=== PATIENT | male | born 1965 | race African-American/Black ===

== ENCOUNTER 2018-03-07 13:42 | Emergency (ER) | payer SELFPAY ==
[~2018-03-07] VITALS: Ht 172.7 cm; Wt 79.4 kg
[2018-03-07] MEDS ORDERED: NKM (13:50)
--- NOTE | 2018-03-07 14:05 | Emergency Room Report ---
History of Present Illness General Chief Complaint: Male Urogenital Problems Source: Patient Present Illness HPI 52-year-old male patient presents ER complaining of blood in urine this morning. Reports that he went on the internet and was instructed to go to the ER for symptoms of blood in urine. Reports that he has urinated since that time without any blood. Denies pain with urination, penile discharge, penile pain, testicular swelling or pain. Denies history of prostate problems. Denies history of kidney stones. Denies fever, chest pain, shortness of breath , abdominal pain. Reports no acute symptoms at this time. reports wears condoms during sex. Denies penile rash. reports was "goofing around" with his buddies yesterday and was hit on his back and stomach during that time. Allergies: Coded Allergies: No Known Allergies (Unverified , 03/07/18) Patient History Past Medical History: see triage record Reviewed Nursing Documentation: PMH: Agreed; PSxH: Agreed Nursing Documentation-PMH Past Medical History: No Stated History Review of Systems All Other Systems: negative except mentioned in HPI Physical Exam Vital Signs Date Time Temp Pulse Resp B/P (MAP) Pulse Ox O2 Delivery O2 Flow Rate FiO2 03/07/18 13:45 97.9 99 16 151/108 96 Room Air 97.9 Sp02 EP Interpretation: reviewed, normal General Appearance: well appearing, no apparent distress, alert, GCS 15, non- toxic Head: normocephalic, atraumatic Neck: full range of motion Respiratory: lungs clear, normal breath sounds, no rhonchi, no respiratory distress, no accessory muscle use, no wheezing, speaking full sentences Cardiovascular #1: regular rate, rhythm, no edema Gastrointestinal: non tender, soft, no mass, non-distended, no guarding, no rebound Genitourinary: no CVA tenderness Musculoskeletal: back normal, digits/nails normal, gait/station normal, normal range of motion, non-tender Neurologic: alert, oriented x3, responsive, motor strength/tone normal, sensory intact Skin: no rash Medical Decision Making PA Attestation Dr. Rocha is my supervising Physician whom patient management has been discussed with. Diagnostic Impression: Primary Impression: Hematuria ER Course Pt presents to ED c/o urinary symptoms. DDX considered but are not limited to cystitis, pyelonephritis, STI, UTI, nephrolithiasis. Low suspicion for kidney stones, patient denies flank pain, fever, vomiting, dysuria. VITAL SIGNS are WNL, patient is afebrile. Ordered UA. ER COURSE Physical exam benign, no abdominal TTP, no flank pain, no circumoral pallor, no lightheadedness or dizziness, no signs of anemia. UA results show numerous RBCs, do signs of infection, do not indicate UTI, does not need abx at this time. If concern for STI, followup with STI clinic for testing and treatment. Denies STI concern. follow-up with primary care provider, discuss evaluation for prostate and kidney problems. Informed patient that likely Acute trauma from "goofing around" with his buddies likely resulted in hematuria in urine. Instructed patient to follow-up with crank hand for further treatment and evaluation. Does not require imaging and labs at this time. Denies acute complaints currently. No flank pain. ER precautions given. Patient is resting comfortably in chair, nontoxic appearing, in no acute distress. Patient states they feel better and is ready to go home. DISCHARGE -Rx provided for Tylenol if pain symptoms present. Patient is stable for discharge. Patient resting comfortably, in no acute distress, nontoxic appearing, talking without difficulty. Will provide with patient care instructions and any necessary prescriptions. Patient understands and agrees to treatment plan. Patient encouraged to drink plenty of fluids. Patient to take medication as instructed. Care plan and follow-up instructions provided. Patient questions asked and answered. Reports understanding and agreement to treatment plan. Patient instructed to follow-up with primary care provider in 3 - 5 days. ER precautions given. Patient instructed to return to ER immediately for any new or worsening of symptoms. Including but not limited to fever, abdominal pain , intractable vomiting. - Please note that this Emergency Department Report was dictated using [employer] trim[employer] technology software, occasionally this can lead to erroneous entry secondary to interpretation by the dictation equipment. Labs Test 03/07/18 13:50 Urine Color Yellow Urine Appearance Clear Urine pH 6.5 (4.5-8.0) Urine Specific [place] 1.015 (1.005-1.035) Urine Protein Negative (NEGATIVE) Urine Glucose (UA) Negative (NEGATIVE) Urine Ketones Negative (NEGATIVE) Urine Occult Blood 4+ (NEGATIVE) Urine Nitrite Negative (NEGATIVE) Urine Bilirubin Negative (NEGATIVE) Urine Urobilinogen 1 MG/DL (0.0-1.0) Urine Leukocyte Esterase 1+ (NEGATIVE) Urine RBC 15-20 /HPF (0 - 0) Urine WBC 0-2 /HPF (0 - 0) Urine Squamous Epithelial Cells Occasional /LPF Urine Bacteria Occasional /HPF (NONE) Urine Mucus Few /LPF (NONE/OCC) Last Vital Signs Date Time Temp Pulse Resp B/P (MAP) Pulse Ox O2 Delivery O2 Flow Rate FiO2 03/07/18 13:45 97.9 99 16 151/108 96 Room Air 97.9 Disposition: HOME, SELF-CARE Condition: Stable Scripts Acetaminophen* (TYLENOL EXTRA STRENGTH*) 500 Mg Tablet 500 MG ORAL Q8H PRN for Prn Headache/Temp > 101, #30 TAB 0 Refills Prov: Pratik Carrera 03/07/18 Patient Instructions: Hematuria, Adult Additional Instructions: Followup with primary care provider in 2-3 days. Needs referral to urology/ nephrology. Take Tylenol or Ibuprofen as needed for pain symptoms. Patient questions asked and answered. ER precautions given, patient instructed to return to ER immediately for any new or worsening of symptoms. Pratik Carrera Mar 07, 2018 14:05
[2018-03-07 14:18] LABS: APPEARANCE,URINE CLEAR; BILIRUBIN, URINE NEGATIVE (NEGATIVE); GLUCOSE, URINE (UA) NEGATIVE (NEGATIVE); KETONES,URINE NEGATIVE (NEGATIVE); LEUKOCYTE ESTERASE ,URINE 1+ (NEGATIVE); NITRITE,URINE NEGATIVE (NEGATIVE); PH,URINE 6.5 (4.5-8.0); PROTEIN,URINE NEGATIVE (NEGATIVE); UROBILINOGEN,URINE 1 MG/DL (0.0-1.0)
[2018-03-07 14:19] VITALS: BP 151/108
[2018-03-07 14:25] LABS: COLOR,URINE YELLOW
[2018-03-07] MEDS ORDERED: TYLENOL EXTRA500 MG ORAL (14:45)
[2018-03-07 15:10] VITALS: BP 148/88
== END 2018-03-07 15:12 | disposition home or self-care (01) ==
LOC: EMR 14:45
DX: R31.9 Hematuria, unspecified (principal)
CPT/HCPCS: 81003; 99283